=== PATIENT | female | born 1960 | race Caucasian/White ===

== ENCOUNTER 2018-09-27 12:52 | Observation (INO) | payer OTHER ==
--- NOTE | 2018-09-27 14:08 | Emergency Department Record ---
History of Present Illness - General Chief Complaint: General Stated Complaint: LOW BLOOD COUNT Time Seen by Provider: 09/27/18 12:55 Source: Patient, RN notes reviewed Mode of Arrival: Ambulatory - History of Present Illness Initial comments: Patient has been SOB for the last 6 months and progressively worse and much worse in the last few days and she saw Judith Negron and blood reveals hg 6.5 and no bloody or black stool. No NSAID and only couple aspirins couple of days ago and occassionally upset stomach. Mother had Mylodsyplastic disease and at 76 years old. Patient had a colonoscopy many years ago. Patient's says she drinks 5 beers per week. Onset/Timin -: Month(s) - T[place]ha Coma Scale Eye Response: (4) Open spontaneously Motor Response: (6) Obeys commands Verbal Response: (5) Oriented [place] Total: 15 - Related Data Home Medications Medication Instructions Recorded Confirmed Last Taken No Home Med [NO HOME MEDS] 09/27/18 09/27/18 Unknown Allergies Allergy/AdvReac Type Severity Reaction Status Date / Time Carbonic Anhydrase Inhibitors Allergy Unknown PT UNSURE Verified 09/27/18 13:01 OF REACTION levofloxacin Allergy Unknown PT UNSURE Verified 09/27/18 13:01 OF REACTION Quinolones Allergy Unknown PT UNSURE Verified 09/27/18 13:01 OF REACTION Sulfa (Sulfonamide Allergy Unknown PT UNSURE Verified 09/27/18 13:01 Antibiotics) OF REACTION sulfacetamide Allergy Unknown PT UNSURE Verified 09/27/18 13:01 OF REACTION sulfamethoxazole Allergy Unknown PT UNSURE Verified 09/27/18 13:01 OF REACTION Sulfonylureas Allergy Unknown PT UNSURE Verified 09/27/18 13:01 OF REACTION Thiazides Allergy Unknown PT UNSURE Verified 09/27/18 13:01 OF REACTION Travel Screening - Travel/Exposure Within Last 30 Days Have you traveled within the last 30 days?: No - Travel/Exposure Within Last Year Have you traveled outside the [place] in the last year?: No - Additonal Travel Details Have you been exposed to anyone with a communicable illness?: No - Travel Symptoms Symptom Screening: None Review of Systems Reviewed: No additional complaints except as noted below Constitutional: Reports: As per HPI. Denies: Chills, Fever, Malaise, Night sweats, Weakness, Weight change Eyes: Reports: As per HPI. Denies: Eye discharge, Eye pain, Photophobia, Vision change ENT: Reports: As per HPI. Denies: Congestion, Dental pain, Ear pain, Epistaxis , Hearing loss, Throat pain Respiratory: Reports: As per HPI, Dyspnea. Denies: Cough, Hemoptysis, Stridor, Wheezes Cardiovascular: Reports: As per HPI, Dyspnea on exertion. Denies: Arrhythmia, Chest pain, Edema, Murmurs, Orthopnea, Palpitations, Paroxysmal nocturnal dyspnea, Rheumatic Fever, Syncope Endocrine: Reports: As per HPI. Denies: Fatigue, Heat or cold intolerance, Polydipsia, Polyuria Gastrointestinal: Reports: As per HPI. Denies: Abdominal pain, Constipation, Diarrhea, Hematemesis, Hematochezia, Melena, Nausea, Vomiting Genitourinary: Reports: As per HPI. Denies: Abnormal menses, Discharge, Dyspareunia, Dysuria, Frequency, Hematuria, Incontinence, Retention, Urgency Musculoskeletal: Reports: As per HPI. Denies: Arthralgia, Back pain, Gout, Joint swelling, Myalgia, Neck pain Skin: Reports: As per HPI. Denies: Bruising, Change in color, Change in hair/ nails, Lesions, Pruritus, Rash Neurological: Reports: As per HPI. Denies: Abnormal gait, Confusion, Headache, Numbness, Paresthesias, Seizure, Tingling, Tremors, Vertigo, Weakness Psychiatric: Reports: As per HPI. Denies: Anxiety, Auditory hallucinations, Depression, Homicidal thoughts, Suicidal thoughts, Visual hallucinations Hematological/Lymphatic: Reports: As per HPI. Denies: Anemia, Blood Clots, Easy bleeding, Easy bruising, Swollen glands Past Medical History - SOCIAL HISTORY Smoking Status: Never smoker Alcohol Use: Occasional Drug Use: None - RESPIRATORY Hx Respiratory Disorders: No - CARDIOVASCULAR Hx Cardio Disorders: No - NEURO Hx Neuro Disorders: No - GI Hx GI Disorders: No - Hx Genitourinary Disorders: No - ENDOCRINE Hx Endocrine Disorders: No - MUSCULOSKELETAL Hx Musculoskeletal Disorders: No - PSYCH Hx Psych Problems: No - HEMATOLOGY/ONCOLOGY Hx Hematology/Oncology Disorders: No Family Medical History Any Significant Family History?: Yes Hx Diabetes: Father, Brother/Sister Hx Heart Disease: Father, Mother Physical Exam - General General Appearance: Alert, Oriented x3, Cooperative, No acute distress Limitations: Other (pale) - Head Head exam: Normal inspection - Eye Eye exam: Normal appearance, PERRL Pupils: Normal accommodation - ENT ENT exam: Normal exam, Mucous membranes moist, Normal external ear exam, Normal orophraynx, TM's normal bilaterally Ear exam: Normal external inspection. negative: External canal tenderness Nasal Exam: Normal inspection. negative: Discharge, Sinus tenderness Mouth exam: Normal external inspection, Tongue normal Teeth exam: Normal inspection. negative: Dental caries Throat exam: Normal inspection. negative: Tonsillar erythema, Tonsillar exudate - Neck Neck exam: Normal inspection, Full ROM. negative: Tenderness - Respiratory Respiratory exam: Normal lung sounds bilaterally. negative: Respiratory distress - Cardiovascular Cardiovascular Exam: Regular rate, Normal rhythm, Normal heart sounds - GI/Abdominal GI/Abdominal exam: Soft, Normal bowel sounds. negative: Tenderness - Rectal Rectal exam: Heme (-) stool (brown stool) - exam: Deferred - Extremities Extremities exam: Normal inspection, Full ROM, Normal capillary refill. negative: Tenderness - Back Back exam: Reports: Normal inspection, Full ROM. Denies: Muscle spasm, Rash noted, Tenderness - Neurological Neurological exam: Alert, Normal gait, Oriented X3, Reflexes normal - Psychiatric Psychiatric exam: Normal affect, Normal mood - Skin Skin exam: Dry, Intact, Normal color, Warm Course Vital Signs 09/27/18 13:02 Temperature 98.1 F Pulse Rate 92 H Respiratory 20 Rate Blood Pressure 150/75 - Reevaluation(s) Reevaluation #1: discussed treatment options with patient and she wants to stay here and have blood transfusions and follow up with GI on tuesday to see Dr. Power. Discussed case with Larissa Pruitt NP and she excepted the admission. 09/27/18 15:58 Medical Decision Making - Data Complexity MDM Data: Labs Ordered and/or Reviewed (iron low, hg 6.5), X-Ray Ordered and/or Reviewed (4 non obstructing kidney stones in the right kidney collection , stones in the left kidney nonobstructing) Disposition Clinical Impression: Anemia Qualifiers: Anemia type: iron deficiency Iron deficiency anemia type: unspecified iron deficiency Qualified Code(s): D50.9 - Iron deficiency anemia, unspecified Decision to Admit: Admit from ER Condition: (1) Good Instructions: Anemia (ED) Forms: Patient Portal Access Time of Disposition: 16:01 Quality - Quality Measures Quality Measures: N/A - Blood Pressure Screening Does Patient Have Any of the Following: No Blood Pressure Classification: Hypertensive Reading Systolic Measurement: 150 Diastolic Measurement: 75 Screening for High Blood Pressure: < Pre-Hypertensive BP, F/U Documented > [ [id number]] Pre-Hypertensive Follow-up Interventions: Referral to alternative/primary care provider.
[2018-09-27 14:57] LABS: ABO GROUP A; IMMED. SPIN CROSSMATCH COMPATIBLE; RH TYPE NEGATIVE
[2018-09-27 14:58] LABS: ANTIBODY SCREEN NEGATIVE (NEGATIVE)
[2018-09-27] MEDS ORDERED: ACETAMINOPHEN 325 MG TAB PO PRN (16:06)
[2018-09-27] MEDS ORDERED: 0.9 % SODIUM CHLORIDE 1000ML 1,000 ML IV PRN ×2 (16:06→17:19)
[2018-09-27 17:40] LABS: IMMED. SPIN CROSSMATCH COMPATIBLE
[2018-09-27] MEDS ORDERED: 0.9 % SODIUM CHLORIDE 500ML 500 ML IV ONE (17:47)
[2018-09-28 06:41] LABS: HEMATOCRIT 28.2 % (35.0-47.0); MEAN CORPUSCULAR HGB CONC 28.4 g/dl (32-36); MEAN PLATELET VOLUME 9.5 fl (7.4-10.4); PLATELET COUNT 436 K/uL (130-400); RED BLOOD COUNT 4.03 M/uL (3.80-5.40); RED CELL DISTRIBUTION WIDTH 22.6 % (11.5-14.5); WHITE BLOOD COUNT W/O DIFF 8.1 K/uL (4.2-12.2)
[2018-09-28 07:28] LABS: MEAN CORPUSCULAR HEMOGLOBIN 19.8 pg (27-33)
[2018-09-28 07:54] LABS: ANISOCYTOSIS 1+; HYPOCHROMIA 2+
--- NOTE | 2018-09-28 10:45 | CT SCAN REPORT ---
EXAM: CT OF THE ABDOMEN AND PELVIS WITHOUT CONTRAST HISTORY: SHORTNESS OF BREATH. LOW HEMOGLOBIN. TECHNIQUE: Routine helical CT examination of the abdomen and pelvis was performed without oral or intravenous contrast administration. Lack of oral and IV contrast utilization limits evaluation of the bowel and solid viscera respectively. Comparison: CT abdomen and pelvis without contrast dated 09/04/12. FINDINGS: The lung bases are grossly clear. There is a moderate to large sliding type hiatal hernia redemonstrated. This appears slightly larger in the interval and there is associated minimal compressive atelectasis of the adjacent medial lung bases. A nonenlarged lymph node is likely present in the right posterior aspect of the hernia sac. No pleural or pericardial effusion. The heart is not enlarged. The liver, spleen, pancreas, and adrenal glands are normal in appearance. The gallbladder is unremarkable and no biliary ductal dilatation is seen. A small peripherally calcified splenic artery aneurysm is noted in the left upper quadrant as seen on series 3 image 35 measuring 5.4 mm in diameter. Areas of scarring are again noted within the right kidney. There are several calculi within the dependent portion of the prominent right renal collecting system pelvis. The largest of these is disk shaped measuring 12 mm in maximum diameter. The next largest is also disk shaped measuring 7.5 mm in maximum diameter. The other two measure 5 mm in length bilaterally. Only one calculus was present in the right renal collecting system previously. The previously demonstrated calculi in the lower right kidney are no longer present in this location. There is a possible tiny 1 mm calculus in the upper pole of the right kidney. There is a calculus within a lower pole infundibulum in the left renal collecting system measuring 4.3 mm in diameter. No ureteral calculus is seen. No intrinsic urinary bladder abnormality. The uterus is surgically absent. Scarring is noted at the level of the vaginal cuff. No new pelvic mass, lymphadenopathy, or free pelvic fluid. There is diverticulosis scattered throughout the colon without evidence of acute diverticulitis. The appendix is visualized and normal in appearance. A small fat filled umbilical hernia is redemonstrated. There is expansion of the sacral spinal canal as well as the first and second left sacral neural foramina and to a lesser degree the right second sacral neural foramen. These findings are unchanged and are consistent with perineural cyst/intersacral meningocele. No new lytic or blastic bone lesion. IMPRESSION: 1. THERE ARE FOUR NONOBSTRUCTING CALCULI WITHIN THE DEPENDENT DILATED RIGHT RENAL COLLECTING SYSTEM PELVIS WITH THE LARGEST MEASURING 12 MM IN DIAMETER. THIS APPEARS TO BE IN THE SETTING OF CHRONIC UPJ OBSTRUCTION. 2. TINY 1 MM NONOBSTRUCTING CALCULUS IN THE UPPER POLE OF THE LEFT KIDNEY. 3. 4.3 MM CALCULUS WITHIN A LOWER POLE INFUNDIBULUM OF THE LEFT RENAL COLLECTING SYSTEM. THIS APPEARS TO BE NONOBSTRUCTING. NO URETERAL CALCULUS. 4. COLONIC DIVERTICULOSIS WITHOUT EVIDENCE OF ACUTE DIVERTICULITIS. 5. MODERATE TO LARGE HIATAL HERNIA WITH ASSOCIATED MILD COMPRESSIVE ATELECTASIS OF THE MEDIAL LUNG BASES. THIS HAS MILDLY ENLARGED SINCE 2013. 6. SMALL PERIPHERALLY CALCIFIED SPLENIC ARTERY ANEURYSM, STABLE. 7. STATUS POST HYSTERECTOMY. 8. FLUID DENSITY PROMINENCE EXPANDING THE SACRAL SPINAL CANAL AND SEVERAL SACRAL NEURAL FORAMINA, STABLE CONSISTENT WITH PERINEURAL CYST/INTERSACRAL MENINGOCELE. JOB NUMBER: [id number] MTDD
--- NOTE | 2018-09-28 11:56 | History & Physical ---
History of Present Illness - Date of Service Date of Service for History & Physical: 09/29/18 - History of Present Illness Admitting Diagnosis: anemia History of Present Illness: Anne Benson is a 58 y.o. F who presented to ED at the instruction of her new PCP, Judith Negron NP. Was seen in the office on 09/26/18 with c/o SOB x 6 months. Labs were drawn showing a hgb of 6.5, MCV 66.4. Had reported hx of black , tarry stool however pt associated it with eating prunes daily. Has not noted any bleeding from anywhere. Stated that her mother from complications r/t myeloproliferative d/o which the pt's aunt (mom's sister) also had. Reported that she has been pretty healthy, used to run several miles a day when in the . Has never had any cardiac work up done. Was given the option in the ED to transfer to higher level of care that had GI specialist on staff or to stay the night at [facility], get blood and then return next week for outpatient endoscopy. Pt chose to stay at [facility] for care. ED Course Vitals: T 98.1, Hr 92, BP 150/75, RR 20, SpO2 98% on RA Rectal Exam WNL Stool Neg. for Occult blood CT Abd/Pelvis: no obvious cause of bleeding noted 09/28/18 1100 Sitting up in bed, alert and appropriate. Spouse at bedside. Reports that she received blood the previous night and is feeling slightly less fatigued. Denies SOB when sitting but does experience it with exertion. Denies CP, palpitations or LE edema. Bowels working appropriately. No nausea. Travel Screening - Travel/Exposure Within Last 30 Days Have you traveled within the last 30 days?: No - Travel/Exposure Within Last Year Have you traveled outside the [place] in the last year?: No - Additonal Travel Details Have you been exposed to anyone with a communicable illness?: No - Travel Symptoms Symptom Screening: None Review of Systems Reviewed: No additional complaints except as noted below Constitutional: Reports: As per HPI. Denies: Chills, Fever, Malaise, Night sweats, Weakness, Weight change Eyes: Reports: As per HPI. Denies: Eye discharge, Eye pain, Photophobia, Vision change ENT: Reports: As per HPI. Denies: Congestion, Dental pain, Ear pain, Epistaxis , Hearing loss, Throat pain Respiratory: Reports: As per HPI, Dyspnea. Denies: Cough, Hemoptysis, Stridor, Wheezes Cardiovascular: Reports: As per HPI, Dyspnea on exertion. Denies: Arrhythmia, Chest pain, Edema, Murmurs, Orthopnea, Palpitations, Paroxysmal nocturnal dyspnea, Rheumatic Fever, Syncope Endocrine: Reports: As per HPI, Fatigue. Denies: Heat or cold intolerance, Polydipsia, Polyuria Gastrointestinal: Reports: As per HPI. Denies: Abdominal pain, Constipation, Diarrhea, Hematemesis, Hematochezia, Melena, Nausea, Vomiting Genitourinary: Reports: As per HPI. Denies: Abnormal menses, Discharge, Dyspareunia, Dysuria, Frequency, Hematuria, Incontinence, Retention, Urgency Musculoskeletal: Reports: As per HPI. Denies: Arthralgia, Back pain, Gout, Joint swelling, Myalgia, Neck pain Skin: Reports: As per HPI. Denies: Bruising, Change in color, Change in hair/ nails, Lesions, Pruritus, Rash Neurological: Reports: As per HPI. Denies: Abnormal gait, Confusion, Headache, Numbness, Paresthesias, Seizure, Tingling, Tremors, Vertigo, Weakness Psychiatric: Reports: As per HPI. Denies: Anxiety, Auditory hallucinations, Depression, Homicidal thoughts, Suicidal thoughts, Visual hallucinations Hematological/Lymphatic: Reports: As per HPI. Denies: Anemia, Blood Clots, Easy bleeding, Easy bruising, Swollen glands Past Medical History - SOCIAL HISTORY Smoking Status: Never smoker Alcohol Use: Occasional Drug Use: None - RESPIRATORY Hx Respiratory Disorders: No - CARDIOVASCULAR Hx Cardio Disorders: Yes Comment:: murmur - NEURO Hx Neuro Disorders: No - GI Hx GI Disorders: No - Hx Genitourinary Disorders: No - ENDOCRINE Hx Endocrine Disorders: No - MUSCULOSKELETAL Hx Musculoskeletal Disorders: No - PSYCH Hx Psych Problems: No - HEMATOLOGY/ONCOLOGY Hx Hematology/Oncology Disorders: Yes Hx Anemia: Yes Family Medical History Any Significant Family History?: Yes Hx Diabetes: Father, Brother/Sister Hx Heart Disease: Father, Mother H&P Meds/Allergies - Allergies Allergies: Allergies Allergy/AdvReac Type Severity Reaction Status Date / Time Carbonic Anhydrase Inhibitors Allergy Unknown PT UNSURE Verified 09/27/18 13:01 OF REACTION levofloxacin Allergy Unknown PT UNSURE Verified 09/27/18 13:01 OF REACTION Quinolones Allergy Unknown PT UNSURE Verified 09/27/18 13:01 OF REACTION Sulfa (Sulfonamide Allergy Unknown PT UNSURE Verified 09/27/18 13:01 Antibiotics) OF REACTION sulfacetamide Allergy Unknown PT UNSURE Verified 09/27/18 13:01 OF REACTION sulfamethoxazole Allergy Unknown PT UNSURE Verified 09/27/18 13:01 OF REACTION Sulfonylureas Allergy Unknown PT UNSURE Verified 09/27/18 13:01 OF REACTION Thiazides Allergy Unknown PT UNSURE Verified 09/27/18 13:01 OF REACTION - Home Medications Previous Rx's Medication Instructions Recorded Acetaminophen [Tylenol 325Mg] 650 mg PO Q6H PRN tablet 09/28/18 - Active Medications Active Medications: Current Medications Acetaminophen (Tylenol 325mg) 650 mg PO Q6H PRN PRN Reason: PAIN - MILD(1-4)/FEVER Sodium Chloride () 500 mls @ 15 mls/hr IV .Q24H ONE Stop: 09/28/18 17:46 Physical Exam - Vital Signs Vital Signs: Vital Signs - Last 24 Hrs Temp Pulse Pulse Resp BP BP BP 09/28/18 10:00 97.9 F 74 18 127/64 09/28/18 06:00 98.1 F 67 18 150/84 09/28/18 00:06 98.1 F 74 17 154/87 09/27/18 20:00 97.9 F 80 18 123/69 09/27/18 18:18 18 09/27/18 16:45 98.1 F 92 H 18 150/75 09/27/18 16:11 75 18 128/76 09/27/18 13:02 98.1 F 92 H 20 150/75 Pulse Ox 09/28/18 10:00 97 09/28/18 06:00 96 09/28/18 00:06 99 09/27/18 20:00 99 09/27/18 18:18 09/27/18 16:45 98 09/27/18 16:11 98 09/27/18 13:02 - General General Appearance: Alert, Oriented x3, Cooperative, No acute distress Limitations: Other (pale) - Head Head exam: Normal inspection - Eye Eye exam: Normal appearance, PERRL Pupils: Normal accommodation - ENT ENT exam: Normal exam, Mucous membranes moist Ear exam: negative: External canal tenderness Nasal Exam: negative: Discharge, Sinus tenderness Teeth exam: Normal inspection. negative: Dental caries Throat exam: Normal inspection. negative: Tonsillar erythema, Tonsillar exudate - Neck Neck exam: Normal inspection, Full ROM. negative: Tenderness - Respiratory Respiratory exam: Normal lung sounds bilaterally. negative: Respiratory distress - Cardiovascular Cardiovascular Exam: Regular rate, Normal rhythm, Systolic murmur - GI/Abdominal GI/Abdominal exam: Soft, Normal bowel sounds. negative: Tenderness - Rectal Rectal exam: Heme (-) stool (brown stool) - exam: Deferred - Extremities Extremities exam: Normal inspection, Full ROM, Normal capillary refill. negative: Tenderness - Back Back exam: Reports: Normal inspection, Full ROM. Denies: Muscle spasm, Rash noted, Tenderness - Neurological Neurological exam: Alert, Normal gait, Oriented X3, Reflexes normal - Psychiatric Psychiatric exam: Normal affect, Normal mood - Skin Skin exam: Dry, Intact, Normal color, Warm Results - Labs Result Diagrams: 09/28/18 06:21 Labs Last 24 Hours: Laboratory Results - last 24 hr 09/27/18 09/27/18 09/27/18 13:07 13:09 13:09 WBC RBC Hgb Hct MCV MCH MCHC RDW Plt Count MPV Neutrophils % Band Neutrophils % Eosinophils % Basophils % Lymphocytes Monocytes Basophils Hypochromasia Anisocytosis Eosinophil Count Stool Occult Blood ABO Group A Rh Factor Negative Antibody Screen Negative Crossmatch Yes Yes 09/28/18 09/28/18 06:21 09:10 WBC 8.1 RBC 4.03 Hgb 8.0 L Hct 28.2 L MCV 70.0 L MCH 19.8 L MCHC 28.4 L RDW 22.6 H Plt Count 436 H MPV 9.5 Neutrophils % 62.0 Band Neutrophils % 0.0 Eosinophils % Not Reportable Basophils % Not Reportable Lymphocytes 27.0 Monocytes 10.0 H Basophils 0.0 Hypochromasia 2+ Anisocytosis 1+ Eosinophil Count 1.0 Stool Occult Blood Negative ABO Group Rh Factor Antibody Screen Crossmatch - Imaging and Cardiology CT scan - abdomen Status: Report reviewed VTE H&P Assessment - Risk for VTE Risk for VTE: Yes Risk Level: Low Risk Assessment Date: 09/28/18 Risk Assessment Time: 11:00 VTE Orders Placed or Will Be Placed: Yes Plan - Detailed Diagnosis and Plan (1) Shortness of breath on exertion Status: Acute Base Code: R06.02 - SHORTNESS OF BREATH Comment: 09/28/18 -Echocardiogram: Grade II diastolic dysfunction, EF 55-60%, mild aortic regurgitation -Recommend f/u with PCP for possible cardiology referral -Iron deficiency anemia; Hgb 6.5, MCV 66.4 (2) Anemia Status: Acute Qualifiers: Anemia type: iron deficiency Iron deficiency anemia type: unspecified iron deficiency Qualified Code(s): D50.9 - Iron deficiency anemia, unspecified Base Code: D64.9 - ANEMIA, UNSPECIFIED Comment: 09/28/18 -Stool negative for occult blood x 2 -Likely iron deficiency anemia -Hgb 6.5, MCV 66.4 -Iron Studies: Iron 10, TIBC 66, % sat 2, Ferritin 4 -2 units PRBCs and Venofer 500mg IV administered -Repeat Venofer Infusion in 2 weeks -EGD and colonoscopy on 10/03/[address] Power (3) Full code status Status: Acute Base Code: Z78.9 - OTHER SPECIFIED HEALTH STATUS Comment: 09/28 -Full code this admission (4) DVT prophylaxis Status: Acute Base Code: [id number] - Comment: 09/28/18 -Low risk -Nursing to encourage ambulation
--- NOTE | 2018-09-28 11:57 | Discharge Summary ---
Providers Discharge Summary Date: 09/28/18 Date of admission: 09/27/18 16:49 Attending physician: PAVITHRA COLE Primary care physician: Judith Negron N.P. Physical Exam - Vital Signs Vital Signs: Vital Signs - Last 24 Hrs Temp Pulse Pulse Resp BP BP BP 09/28/18 10:00 97.9 F 74 18 127/64 09/28/18 06:00 98.1 F 67 18 150/84 09/28/18 00:06 98.1 F 74 17 154/87 09/27/18 20:00 97.9 F 80 18 123/69 09/27/18 18:18 18 09/27/18 16:45 98.1 F 92 H 18 150/75 09/27/18 16:11 75 18 128/76 09/27/18 13:02 98.1 F 92 H 20 150/75 Pulse Ox 09/28/18 10:00 97 09/28/18 06:00 96 09/28/18 00:06 99 09/27/18 20:00 99 09/27/18 18:18 09/27/18 16:45 98 09/27/18 16:11 98 09/27/18 13:02 - General General Appearance: Alert, Oriented x3, Cooperative, No acute distress - Head Head exam: Normal inspection - Eye Eye exam: Normal appearance, PERRL Pupils: Normal accommodation - ENT ENT exam: Normal exam, Mucous membranes moist, Normal external ear exam, Normal orophraynx, TM's normal bilaterally Ear exam: Normal external inspection. negative: External canal tenderness Nasal Exam: Normal inspection. negative: Discharge, Sinus tenderness Mouth exam: Normal external inspection, Tongue normal Teeth exam: Normal inspection. negative: Dental caries Throat exam: Normal inspection. negative: Tonsillar erythema, Tonsillar exudate - Neck Neck exam: Normal inspection, Full ROM. negative: Tenderness - Respiratory Respiratory exam: Normal lung sounds bilaterally. negative: Respiratory distress - Cardiovascular Cardiovascular Exam: Regular rate, Normal rhythm, Systolic murmur - GI/Abdominal GI/Abdominal exam: Soft, Normal bowel sounds. negative: Tenderness - Rectal Rectal exam: Heme (-) stool (brown stool) - exam: Deferred - Extremities Extremities exam: Normal inspection, Full ROM, Normal capillary refill. negative: Pedal edema, Tenderness - Back Back exam: Reports: Normal inspection, Full ROM. Denies: Muscle spasm, Rash noted, Tenderness - Neurological Neurological exam: Alert, Normal gait, Oriented X3, Reflexes normal - Psychiatric Psychiatric exam: Normal affect, Normal mood - Skin Skin exam: Dry, Intact, Normal color, Warm Hospitalization - Hospitalization Admission Diagnosis: anemia - Problem List/Discharge Diagnosis (1) Shortness of breath on exertion Status: Acute Base Code: R06.02 - SHORTNESS OF BREATH Comment: 09/28/18 -Echocardiogram: Grade II diastolic dysfunction, EF 55-60%, mild aortic regurgitation -Recommend f/u with PCP for possible cardiology referral -Iron deficiency anemia; Hgb 6.5, MCV 66.4 (2) Anemia Status: Acute Discharge Diagnosis: Anemia type: iron deficiency Iron deficiency anemia type: unspecified iron deficiency Qualified Code(s): D50.9 - Iron deficiency anemia, unspecified Base Code: D64.9 - ANEMIA, UNSPECIFIED Comment: 09/28/18 -EGD and colonoscopy on 10/03/[address] Power -Labs ordered and to be done prior to f/u appointment with PCP (3) DVT prophylaxis Status: Acute Base Code: [id number] - Comment: 09/28/18 -Low risk -Nursing to encourage ambulation (4) Full code status Status: Acute Base Code: Z78.9 - OTHER SPECIFIED HEALTH STATUS Comment: 09/28 -Full code this admission - Hospitalization Course Disposition: Home, Self-Care Hospital Course: Anne Benson is a 58 y.o. F who presented to ED at the instruction of her new PCP, Judith Negron NP. Was seen in the office on 09/26/18 with c/o SOB x 6 months. Labs were drawn showing a hgb of 6.5, MCV 66.4. Had reported hx of black , tarry stool however pt associated it with eating prunes daily. Has not noted any bleeding from anywhere. Stated that her mother from complications r/t myeloproliferative d/o which the pt's aunt (mom's sister) also had. Reported that she has been pretty healthy, used to run several miles a day when in the . Has never had any cardiac work up done. Was given the option in the ED to transfer to higher level of care that had GI specialist on staff or to stay the night at [facility], get blood and then return next week for outpatient endoscopy. Pt chose to stay at [facility] for care. ED Course Vitals: T 98.1, Hr 92, BP 150/75, RR 20, SpO2 98% on RA Rectal Exam WNL Stool Neg. for Occult blood CT Abd/Pelvis: no obvious cause of bleeding noted 09/28/18 1100 Sitting up in bed, alert and appropriate. Spouse at bedside. Reports that she received blood the previous night and is feeling slightly less fatigued. Denies SOB when sitting but does experience it with exertion. Denies CP, palpitations or LE edema. Bowels working appropriately. No nausea. Procedures: Imaging and X-Rays 09/27/18 14:11 ABDOMEN/PELVIS WO CONTRAST [CT] Stat Cardiology Procedures 09/27/18 19:51 Echocardiogram 2D - Complete ONCE Abnormal Labs: Abnormal Lab Results 09/28/18 Range/Units 06:21 Hgb 8.0 L (11.6-16.0) gm/dl Hct 28.2 L (35.0-47.0) % MCV 70.0 L (81-97) fl MCH 19.8 L (27-33) pg MCHC 28.4 L (32-36) g/dl RDW 22.6 H (11.5-14.5) % Plt Count 436 H (130-400) K/uL Monocytes 10.0 H (0-9) % Condition at Discharge: (1) Good Discharge Medications - Discharge Medications Home Medications: Ambulatory Orders Acetaminophen [Tylenol 325Mg] 650 mg PO Q6H PRN tablet 09/28/18 [Last Taken Unknown] Discharge Plan - Discharge Instructions Activity at Discharge: Resume Usual Activities As Tolerated Diet at Discharge: Advance to Usual Diet Instructions: Anemia (ED) Additional Instructions: 2 Activity: Resume Usual Activities As Tolerated 2 Diet: Advance to Usual Diet 2 Consults: Dr Power 2 Follow Up: [see below] 2 Have outpatient labs drawn before procedure 2 Additional: EGD and colonoscopy scheduled at [facility] with Dr. Power October 02. Arrival time 7:30am. Please bring paperwork with you. Appointment with Judith Negron at [facility], 10/03 at 11:20 Quality Measures - Quality Measures Quality Measures: Documentation of Current Medications in Medical Record, Screening for High Blood Pressure and F/U Documented - Current Medications Quality Measure: Measure #130: Documentation of Current Medications Documentation of Current Medications: <Current Medications Documented/Reviewed> [G8427] - Blood Pressure Screening Quality Measure: Screening for High Blood Pressure and Follow-Up Documented Does Patient Have Any of the Following: No Blood Pressure Classification: Hypertensive Reading Systolic Measurement: 150 Diastolic Measurement: 75 Screening for High Blood Pressure: < Pre-Hypertensive BP, F/U Documented > [ G8950] Pre-Hypertensive Follow-up Interventions: Referral to alternative/primary care provider. - Elder Abuse Suspicion Index EASI Reference Information: Ramos TREVIÑO, Carri C, oRsa Gonzalez, David Bishop.Development and validation of a tool to assist physicians identification of elder abuse: The Elder Abuse Suspicion Index (EASI ). Journal of Elder Abuse and Neglect, 2008; 20 (3): 276-300.
[2018-09-28] MEDS ORDERED: IRON SUCROSE COMPLEX 500 MG in 0.9 % SODIUM CHLORIDE 250ML 250 ML IVPB ONE (13:45)
== END 2018-09-28 17:20 | disposition home or self-care (01) ==
LOC: ER 12:52 → MEDSURG 16:49
PROVIDERS: ADMIT Internal Medicine; ATTEND Internal Medicine
DX: D50.9 Iron deficiency anemia, unspecified (principal); R06.02 Shortness of breath
CPT/HCPCS: 99285 ×2; 36430; 82272; 85027; 86900; 86901; 86850; 74176; 93306; 90686; G0378 ×2; P9016; J1756; 99220; J7050

== ENCOUNTER 2018-10-01 14:52 | Observation (INO) | payer OTHER ==
--- NOTE | 2018-10-01 16:05 | Emergency Department Record ---
History of Present Illness - General Chief complaint: Extremity Problem Stated complaint: LT ARM SWELLING/PAIN Time Seen by Provider: 10/01/18 15:41 Source: Patient Mode of Arrival: Ambulatory Limitations: No limitations - History of Present Illness Initial comments: The patient is here due to L arm pain for 3 days. The patient was recently here as an inpatient from the to the 28 of September due to Critical anemia and did receive blood and an IV Iron infusion. The patient states at the end of the iron infusion the IV went subcut. and she had mild pain and swelling at the site over the L antecubital fossa. Now over the last 3 days the area has become progressively more swollen, painful, and erythematous. She denies any CP, SOB, or fevers. MD Complaint: Extremity pain Onset/Timin -: Days(s) Location: Left, Arm Severity scale (1-10): 8 Quality: Burning Consistency: Constant Improves with: Nothing Worsens with: Nothing - Related Data Allergies Allergy/AdvReac Type Severity Reaction Status Date / Time Carbonic Anhydrase Inhibitors Allergy Unknown PT UNSURE Verified 10/01/18 15:35 OF REACTION levofloxacin Allergy Unknown PT UNSURE Verified 10/01/18 15:35 OF REACTION Quinolones Allergy Unknown PT UNSURE Verified 10/01/18 15:35 OF REACTION Sulfa (Sulfonamide Allergy Unknown PT UNSURE Verified 10/01/18 15:35 Antibiotics) OF REACTION sulfacetamide Allergy Unknown PT UNSURE Verified 10/01/18 15:35 OF REACTION sulfamethoxazole Allergy Unknown PT UNSURE Verified 10/01/18 15:35 OF REACTION Sulfonylureas Allergy Unknown PT UNSURE Verified 10/01/18 15:35 OF REACTION Thiazides Allergy Unknown PT UNSURE Verified 10/01/18 15:35 OF REACTION Travel Screening - Travel/Exposure Within Last 30 Days Have you traveled within the last 30 days?: No - Travel/Exposure Within Last Year Have you traveled outside the [place] in the last year?: No - Additonal Travel Details Have you been exposed to anyone with a communicable illness?: No - Travel Symptoms Symptom Screening: None Review of Systems Constitutional: Denies: Chills, Fever Eyes: Denies: Eye discharge ENT: Denies: Congestion Respiratory: Denies: Cough, Dyspnea Cardiovascular: Denies: Arrhythmia Endocrine: Denies: Fatigue Gastrointestinal: Denies: Nausea Genitourinary: Denies: Dysuria Musculoskeletal: Denies: Arthralgia Skin: Denies: Bruising Past Medical History - SOCIAL HISTORY Smoking Status: Never smoker Alcohol Use: Occasional Drug Use: None - RESPIRATORY Hx Respiratory Disorders: No - CARDIOVASCULAR Hx Cardio Disorders: Yes Comment:: murmur - NEURO Hx Neuro Disorders: No Comment:: lupus - GI Hx GI Disorders: No - Hx Genitourinary Disorders: Yes Hx Kidney Stones: Yes - ENDOCRINE Hx Endocrine Disorders: No - MUSCULOSKELETAL Hx Musculoskeletal Disorders: No - PSYCH Hx Psych Problems: No - HEMATOLOGY/ONCOLOGY Hx Hematology/Oncology Disorders: Yes Hx Anemia: Yes Family Medical History Any Significant Family History?: No Hx Diabetes: Father, Brother/Sister Hx Heart Disease: Father, Mother Physical Exam - General General Appearance: Alert, Cooperative, No acute distress - Head Head exam: Atraumatic, Normocephalic - Eye Eye exam: Normal appearance - Neck Neck exam: Normal inspection, Full ROM. negative: Tenderness - Respiratory Respiratory exam: Normal lung sounds bilaterally. negative: Respiratory distress - Cardiovascular Cardiovascular Exam: Regular rate, Normal rhythm, Normal heart sounds - GI/Abdominal GI/Abdominal exam: Soft, Normal bowel sounds. negative: Tenderness - Extremities Extremities exam: negative: Normal inspection (The L antecubital fossa is tender , warm and erythematous but with no fluctuance. The L arm distally is NVI.) - Neurological Neurological exam: Alert, Normal gait. negative: Abnormal gait, Motor sensory deficit - Psychiatric Psychiatric exam: negative: Anxious - Skin Skin exam: negative: Petechiae Course Vital Signs 10/01/18 15:07 Temperature 98.5 F Pulse Rate 104 H Respiratory 18 Rate Blood Pressure 141/94 Pulse Ox 99 - Reevaluation(s) Reevaluation #1: The patient is doing better at this time but still clearly has the L arm pain and erythema. I do believe we need to admit the patient for IV Abx's for cellulitis. I did discuss the case with Marisa ([employer]) who did accept the case for Dr. Oro. She will order an AM US of the area and possibly consult Dr. Upton for any abscess. 10/01/18 16:44 Medical Decision Making - Lab Data Result diagrams: 10/01/18 16:08 10/01/18 16:08 Disposition Disposition: Admit Clinical Impression: Cellulitis Qualifiers: Site of cellulitis: unspecified site Qualified Code(s): L03.90 - Cellulitis, unspecified Disposition: Still a Patient at [facility] Decision to Admit: Admit from ER Decision to Admit Date: 10/01/18 Decision to Admit Time: 16:46 Accepting Physician: Preethi Time Discussed w/Accepting Physician: 16:46 Condition: (2) Stable Forms: Patient Portal Access Time of Disposition: 16:46 Quality - Quality Measures Quality Measures: N/A - Blood Pressure Screening View Details: Yes Does Patient Have Any of the Following: No Blood Pressure Classification: Hypertensive Reading Systolic Measurement: 141 Diastolic Measurement: 94 Screening for High Blood Pressure: < First Hypertensive BP, F/U Documented > [ G8950] First Hypertensive Follow-up Interventions: Referral to alternative/primary care provider.
[2018-10-01] MEDS ORDERED: CLINDAMYCIN 600MG/50ML PREMIX 600 MG/50 ML BAG IVPB ONE (16:09)
[2018-10-01 16:12] LABS: BASO % 0.5 % (0-6); GRAN % 74.8 % (47-80); LYMPH % 11.8 % (16-45); MEAN CELL VOLUME 71.8 fl (81-97); MEAN CORPUSCULAR HEMOGLOBIN 20.8 pg (27-33); MONO % 11.9 % (0-9); PLATELET COUNT 472 K/uL (130-400); RED BLOOD COUNT 4.32 M/uL (3.80-5.40); WHITE BLOOD COUNT W/O DIFF 12.6 K/uL (4.2-12.2)
[2018-10-01 16:18] LABS: RED CELL DISTRIBUTION WIDTH 25.9 % (11.5-14.5)
[2018-10-01 16:22] LABS: BILIRUBIN,TOTAL 0.4 mg/dL (0.2-1.0); CREATININE 1.1 mg/dL (0.5-0.9)
[2018-10-01 16:23] LABS: TOTAL PROTEIN 7.1 g/dL (6.6-8.7)
[2018-10-01 16:27] LABS: ALB/GLOB RATIO 1.4 (1.1-1.8); ALBUMIN 4.1 g/dL (4.0-5.0)
[2018-10-01] MEDS ORDERED: ACETAMINOPHEN 325 MG TAB PO PRN (18:06)
[2018-10-01] MEDS ORDERED: 0.9 % SODIUM CHLORIDE 1000ML 1,000 ML IV PRN (18:06)
[2018-10-01] MEDS: HYDROCODONE/APAP 5/325MG TABLET PO PRN (20:32)
[2018-10-01] MEDS: MORPHINE SULFATE 10 MG/ML VIAL IVP PRN (20:32)
[2018-10-02] MEDS: CLINDAMYCIN 600MG/50ML PREMIX 600 MG/50 ML BAG IVPB SCH ×3 (00:31→16:10)
[2018-10-02] MEDS: HYDROCODONE/APAP 5/325MG TABLET PO PRN ×2 (04:34→13:10)
[2018-10-02] MEDS: MORPHINE SULFATE 10 MG/ML VIAL IVP PRN (04:38)
[2018-10-02 06:56] LABS: BASO % 0.5 % (0-6); EOS % 1.9 % (0-6); GRAN % 67.1 % (47-80); HEMATOCRIT 27.2 % (35.0-47.0); HEMOGLOBIN 7.6 gm/dl (11.6-16.0); LYMPH % 15.9 % (16-45); MEAN CELL VOLUME 74.3 fl (81-97); MEAN PLATELET VOLUME 9.1 fl (7.4-10.4); MONO % 14.6 % (0-9); PLATELET COUNT 368 K/uL (130-400); RED BLOOD COUNT 3.66 M/uL (3.80-5.40); WHITE BLOOD COUNT W/O DIFF 9.7 K/uL (4.2-12.2)
[2018-10-02 07:06] LABS: MEAN CORPUSCULAR HEMOGLOBIN 20.7 pg (27-33); MEAN CORPUSCULAR HGB CONC 27.9 g/dl (32-36)
[2018-10-02 07:07] LABS: RED CELL DISTRIBUTION WIDTH 26.5 % (11.5-14.5)
[2018-10-02 07:09] LABS: BLOOD UREA NITROGEN 10 mg/dL (6-20); CREATININE 0.7 mg/dL (0.5-0.9); EST GLOMERULAR FILTRATION RATE > 60 mL/min; GLUCOSE,RANDOM 109 mg/dL (74-109)
[2018-10-02] MEDS ORDERED: ONDANSETRON HCL IV 4 MG/2 ML VIAL IVP PRN (07:37)
--- NOTE | 2018-10-02 11:50 | History & Physical ---
History of Present Illness - Date of Service Date of Service for History & Physical: 10/02/18 - History of Present Illness Admitting Diagnosis: 1. Acute L Arm Cellulitis. History of Present Illness: Anne Benson is a 58 y.o. F who presented to the [facility] ED d/t left arm pain x 3 days. Pt was recently hospitalized from 09/27/18 to 09/28/18 d/t critically low anemia. Received 2 units of PRBCs and an IV Iron Infusion. Pt stated that the iron infusion went subq. Had mild pain and swelling at the site over the left anticubital fossa however over the last 3 days, it became progressively more swollen, painful and erythematous. Denied SOB or fevers. ED Course Vitals: T 98.5, HR 104, BP 141/94, RR 18, SpO2 99% on RA Labs: Creatinine 1.1, GFR 54, WBC 12.6, Hgb 9, CRP 5.2 10/02/18 1145 Vitals: T 97.0, HR 70, BP 123/75, RR 18, SpO2 97% RA Lying in bed with left arm elevated. Awake and Alert. Spouse at bedside. Reports that the redness is subsiding and that the pain is at a 3/10. Had morphine last evening which made her nauseated leading to vomiting. Discussed plan to have L arm U/S and a total of 24 hours worth of IV antibiotics. Pt and spouse verbalized agreement with plan to go home on PO antibiotics given that the arm U/S does not show a need for surgery consult. Discussed hemoglobin drop and no intervention at this time as pt has Upper and Lower GI scopes scheduled for 10/05/[address] Power. Travel Screening - Travel/Exposure Within Last 30 Days Have you traveled within the last 30 days?: No - Travel/Exposure Within Last Year Have you traveled outside the [place] in the last year?: No - Additonal Travel Details Have you been exposed to anyone with a communicable illness?: No - Travel Symptoms Symptom Screening: None Review of Systems Reviewed: No additional complaints except as noted below Constitutional: Denies: Chills, Fever, Malaise Eyes: Denies: Eye discharge ENT: Denies: Congestion Respiratory: Denies: Cough, Dyspnea Cardiovascular: Denies: Arrhythmia Endocrine: Denies: Fatigue Gastrointestinal: Denies: Nausea Genitourinary: Denies: Dysuria Musculoskeletal: Denies: Arthralgia Skin: Reports: Other (left arm pain, swelling and redness). Denies: Bruising Past Medical History - SOCIAL HISTORY Smoking Status: Never smoker Alcohol Use: Occasional - RESPIRATORY Hx Respiratory Disorders: No - CARDIOVASCULAR Hx Cardio Disorders: Yes Comment:: murmur - NEURO Hx Neuro Disorders: No Comment:: lupus - GI Hx GI Disorders: No - Hx Genitourinary Disorders: Yes Hx Kidney Stones: Yes - ENDOCRINE Hx Endocrine Disorders: No - MUSCULOSKELETAL Hx Musculoskeletal Disorders: No - PSYCH Hx Psych Problems: No - HEMATOLOGY/ONCOLOGY Hx Hematology/Oncology Disorders: Yes Hx Anemia: Yes Family Medical History Any Significant Family History?: No Hx Diabetes: Father, Brother/Sister Hx Heart Disease: Father, Mother H&P Meds/Allergies - Allergies Allergies: Allergies Allergy/AdvReac Type Severity Reaction Status Date / Time Carbonic Anhydrase Inhibitors Allergy Unknown PT UNSURE Verified 10/01/18 15:35 OF REACTION levofloxacin Allergy Unknown PT UNSURE Verified 10/01/18 15:35 OF REACTION Quinolones Allergy Unknown PT UNSURE Verified 10/01/18 15:35 OF REACTION Sulfa (Sulfonamide Allergy Unknown PT UNSURE Verified 10/01/18 15:35 Antibiotics) OF REACTION sulfacetamide Allergy Unknown PT UNSURE Verified 10/01/18 15:35 OF REACTION sulfamethoxazole Allergy Unknown PT UNSURE Verified 10/01/18 15:35 OF REACTION Sulfonylureas Allergy Unknown PT UNSURE Verified 10/01/18 15:35 OF REACTION Thiazides Allergy Unknown PT UNSURE Verified 10/01/18 15:35 OF REACTION - Home Medications Previous Rx's Medication Instructions Recorded Acetaminophen [Tylenol 325Mg] 650 mg PO Q4H PRN tablet 10/02/18 Bifidobacterium Infantis [Align] 4 mg PO DAILY #10 capsule 10/02/18 Clindamycin HCl [Cleocin HCl] 300 mg PO QID #28 capsule 10/02/18 Fluconazole [Diflucan] 150 mg PO ONCE #2 tab 10/02/18 Hydrocodone/APAP 5/325Mg [[place] 1 each PO Q4H PRN #10 tab 10/02/18 5Mg/325Mg] - Active Medications Active Medications: Current Medications Acetaminophen (Tylenol 325mg) 650 mg PO Q4H PRN PRN Reason: PAIN - MILD(1-4)/FEVER Hydrocodone Bitart/Acetaminophen ([place] 5mg/325mg) 1 each PO Q4H PRN PRN Reason: PAIN - MOD TO SEVERE (5-10) Last Admin: 10/02/18 04:34 Dose: 1 each Sodium Chloride () 1,000 mls @ 75 mls/hr IV .[id number] PRN PRN Reason: LARGE VOLUME IV Clindamycin Phosphate (Cleocin 600 [id number]) 600 mg in 50 mls @ 100 mls/ hr IVPB 0100,0900,1700 MARC Last Infusion: 10/02/18 10:30 Dose: Infused Morphine Sulfate (Morphine Sulfate) 2 mg IVP Q4H PRN PRN Reason: PAIN - SEVERE (8-10) Last Admin: 10/02/18 04:38 Dose: 2 mg Ondansetron HCl (Zofran) 4 mg IVP Q6H PRN PRN Reason: NAUSEA Last Admin: 10/02/18 07:46 Dose: 4 mg Physical Exam - Vital Signs Vital Signs: Vital Signs - Last 24 Hrs Temp Pulse Pulse Resp BP BP Pulse Ox 10/02/18 08:45 18 10/02/18 08:25 97.0 F L 70 18 123/75 97 10/02/18 05:00 98.0 F 74 20 120/61 95 10/01/18 21:00 16 10/01/18 20:06 97.8 F 82 20 156/91 99 10/01/18 17:20 98.6 F 104 H 79 18 141/94 133/76 99 10/01/18 15:07 98.5 F 104 H 18 141/94 99 - General General Appearance: Alert, Oriented x3, Cooperative, No acute distress Limitations: No limitations - Head Head exam: Atraumatic, Normocephalic - Eye Eye exam: Normal appearance - Neck Neck exam: Normal inspection, Full ROM. negative: Tenderness - Respiratory Respiratory exam: Normal lung sounds bilaterally. negative: Respiratory distress - Cardiovascular Cardiovascular Exam: Regular rate, Normal rhythm, Normal heart sounds - GI/Abdominal GI/Abdominal exam: Soft, Normal bowel sounds. negative: Tenderness - Extremities Extremities exam: negative: Normal inspection (The L antecubital fossa is tender , warm and erythematous but with no fluctuance. The L arm distally is NVI.) - Neurological Neurological exam: Alert, Normal gait. negative: Abnormal gait, Motor sensory deficit - Psychiatric Psychiatric exam: negative: Anxious - Skin Skin exam: Other (Left anticubital fossa swollen and redness that is receding from drawn margins). negative: Petechiae Results - Labs Result Diagrams: 10/02/18 06:30 10/02/18 06:30 Labs Last 24 Hours: Laboratory Results - last 24 hr 10/01/18 10/01/18 10/01/18 16:08 16:08 16:08 WBC 12.6 H RBC 4.32 Hgb 9.0 L Hct 31.0 L MCV 71.8 L MCH 20.8 L MCHC 29.0 L RDW 25.9 H Plt Count 472 H MPV 9.0 Gran % 74.8 Lymphocytes % 11.8 L Monocytes % 11.9 H Eosinophils % 1.0 Basophils % 0.5 Sodium 138 Potassium 4.1 Chloride 103 Carbon Dioxide 24.0 Anion Gap 11.0 BUN 9 Creatinine 1.1 H Estimated GFR 54 Random Glucose 124 H Calcium 8.8 Total Bilirubin 0.40 AST 40 H ALT 30 Alkaline Phosphatase 123 H C-Reactive Protein 5.20 H Total Protein 7.1 Albumin 4.1 Globulin 3.0 Albumin/Globulin Ratio 1.4 10/02/18 10/02/18 06:30 06:30 WBC 9.7 RBC 3.66 L Hgb 7.6 L Hct 27.2 L MCV 74.3 L MCH 20.7 L MCHC 27.9 L RDW 26.5 H Plt Count 368 MPV 9.1 Gran % 67.1 Lymphocytes % 15.9 L Monocytes % 14.6 H Eosinophils % 1.9 Basophils % 0.5 Sodium 139 Potassium 4.2 Chloride 105 Carbon Dioxide 24.0 Anion Gap 10.0 BUN 10 Creatinine 0.7 Estimated GFR > 60 Random Glucose 109 Calcium 8.5 L Total Bilirubin AST ALT Alkaline Phosphatase C-Reactive Protein Total Protein Albumin Globulin Albumin/Globulin Ratio VTE H&P Assessment - Risk for VTE Risk for VTE: Yes Risk Level: Low Risk Assessment Date: 10/02/18 Risk Assessment Time: 11:45 VTE Orders Placed or Will Be Placed: Yes Plan - Detailed Diagnosis and Plan (1) Cellulitis Status: Acute Qualifiers: Site of cellulitis: unspecified site Qualified Code(s): L03.90 - Cellulitis , unspecified Base Code: L03.90 - CELLULITIS, UNSPECIFIED Comment: 10/02/18 -LUE cellulitis to anticubital fossa s/p IV Iron infusion that went subq on 09/28 -LUE U/S ordered -WBC decreased from 12.6 to 9.7 -CRP 5.2 -Redness and swelling receding within drawn margins on LUE -Continue Clindamycin IV, will consider switch to PO Clindamycin depending on LUE U/S results -Continue with elevation, can alternate between ice and heat for comfort -NO NSAIDS d/t unknown cause of low hemoglobin -Continue [place] 5/325mg and Tylenol for pain control (2) Anemia Status: Acute Qualifiers: Anemia type: iron deficiency Iron deficiency anemia type: unspecified iron deficiency Qualified Code(s): D50.9 - Iron deficiency anemia, unspecified Base Code: D64.9 - ANEMIA, UNSPECIFIED Comment: 10/02/18 -Hgb dropped from 9 to 7.6 overnight -EGD and colonoscopy on 10/05/[address] Power (3) DVT prophylaxis Status: Acute Base Code: [id number] - Comment: 10/02/18 -Moderate risk -Nursing to encourage ambulation (4) Full code status Status: Acute Base Code: Z78.9 - OTHER SPECIFIED HEALTH STATUS Comment: 10/02 -Full code this admission
--- NOTE | 2018-10-02 15:43 | Discharge Summary ---
Providers Discharge Summary Date: 10/02/18 Date of admission: 10/01/18 16:57 Attending physician: PAVITHRA COLE Primary care physician: Judith Negron N.P. Physical Exam - Vital Signs Vital Signs: Vital Signs - Last 24 Hrs Temp Pulse Pulse Resp BP BP Pulse Ox 10/02/18 13:00 97.5 F L 66 16 116/67 98 10/02/18 08:45 18 10/02/18 08:25 97.0 F L 70 18 123/75 97 10/02/18 05:00 98.0 F 74 20 120/61 95 10/01/18 21:00 16 10/01/18 20:06 97.8 F 82 20 156/91 99 10/01/18 17:20 98.6 F 104 H 79 18 141/94 133/76 99 - General General Appearance: Alert, Oriented x3, Cooperative, No acute distress Limitations: No limitations - Head Head exam: Atraumatic, Normocephalic - Eye Eye exam: Normal appearance - Neck Neck exam: Normal inspection, Full ROM. negative: Tenderness - Respiratory Respiratory exam: Normal lung sounds bilaterally. negative: Respiratory distress - Cardiovascular Cardiovascular Exam: Regular rate, Normal rhythm, Normal heart sounds - GI/Abdominal GI/Abdominal exam: Soft, Normal bowel sounds. negative: Tenderness - Extremities Extremities exam: negative: Normal inspection (The L antecubital fossa is tender , warm and erythematous but with no fluctuance. The L arm distally is NVI.) - Neurological Neurological exam: Alert, Normal gait. negative: Abnormal gait, Motor sensory deficit - Psychiatric Psychiatric exam: negative: Anxious - Skin Skin exam: Other (redness and swelling receding within drawn margins). negative : Petechiae Hospitalization - Hospitalization Admission Diagnosis: 1. Acute L Arm Cellulitis. - Problem List/Discharge Diagnosis (1) Cellulitis Status: Acute Discharge Diagnosis: Site of cellulitis: unspecified site Qualified Code(s): L03.90 - Cellulitis , unspecified Base Code: L03.90 - CELLULITIS, UNSPECIFIED Comment: 10/02/18 -LUE cellulitis to anticubital fossa s/p IV Iron infusion that went subq on 09/28 -LUE U/S: Superficial thrombosis -WBC decreased from 12.6 to 9.7 -CRP 5.2 -Redness and swelling receding within drawn margins on LUE -Has received 3 doses of IV Clindamycin, switch to PO Clindamycin 300mg QID x 6 days (for a total of 7 days worth of atbx) -Advised to start a Probiotic and/or eat yogurt -Sent #2 Diflucan 150mg pills with instructions to take 1 at onset of vaginal yeast infection symptoms and then again in 72 hours if needed -Continue with elevation, can alternate between ice and heat for comfort -NO NSAIDS d/t unknown cause of low hemoglobin -#10 [place] 5/325mg prescribed for severe pain control at home, may use Tylenol (2) Anemia Status: Acute Discharge Diagnosis: Anemia type: iron deficiency Iron deficiency anemia type: unspecified iron deficiency Qualified Code(s): D50.9 - Iron deficiency anemia, unspecified Base Code: D64.9 - ANEMIA, UNSPECIFIED Comment: 10/02/18 -Hgb dropped from 9 to 7.6 overnight -EGD and colonoscopy on 10/05/[address] Power (3) DVT prophylaxis Status: Acute Base Code: [id number] - Comment: 10/02/18 -Moderate risk -Nursing to encourage ambulation (4) Full code status Status: Acute Base Code: Z78.9 - OTHER SPECIFIED HEALTH STATUS Comment: 10/02 -Full code this admission - Hospitalization Course Disposition: Home, Self-Care Hospital Course: Anne Benson is a 58 y.o. F who presented to the [facility] ED d/t left arm pain x 3 days. Pt was recently hospitalized from 09/27/18 to 09/28/18 d/t critically low anemia. Received 2 units of PRBCs and an IV Iron Infusion. Pt stated that the iron infusion went subq. Had mild pain and swelling at the site over the left anticubital fossa however over the last 3 days, it became progressively more swollen, painful and erythematous. Denied SOB or fevers. ED Course Vitals: T 98.5, HR 104, BP 141/94, RR 18, SpO2 99% on RA Labs: Creatinine 1.1, GFR 54, WBC 12.6, Hgb 9, CRP 5.2 10/02/18 1145 Vitals: T 97.0, HR 70, BP 123/75, RR 18, SpO2 97% RA Lying in bed with left arm elevated. Awake and Alert. Spouse at bedside. Reports that the redness is subsiding and that the pain is at a 3/10. Had morphine last evening which made her nauseated leading to vomiting. Discussed plan to have L arm U/S and a total of 24 hours worth of IV antibiotics. Pt and spouse verbalized agreement with plan to go home on PO antibiotics given that the arm U/S does not show a need for surgery consult. Discussed hemoglobin drop and no intervention at this time as pt has Upper and Lower GI scopes scheduled for 10/05/[address] Power. Procedures: Imaging and X-Rays 10/02/18 08:00 VENOUS DOPPLER UPPER EXT LT [US] Stat Abnormal Labs: Abnormal Lab Results 10/01/18 10/01/18 10/01/18 Range/Units 16:08 16:08 16:08 WBC 12.6 H (4.2-12.2) K/uL RBC (3.80-5.40) M/uL Hgb 9.0 L (11.6-16.0) gm/dl Hct 31.0 L (35.0-47.0) % MCV 71.8 L (81-97) fl MCH 20.8 L (27-33) pg MCHC 29.0 L (32-36) g/dl RDW 25.9 H (11.5-14.5) % Plt Count 472 H (130-400) K/uL Lymphocytes % 11.8 L (16-45) % Monocytes % 11.9 H (0-9) % Creatinine 1.1 H (0.5-0.9) mg/dL Random Glucose 124 H (74-109) mg/dL Calcium (8.6-10.0) mg/dL AST 40 H (10.0-35.0) U/L Alkaline Phosphatase 123 H (35-104) U/L C-Reactive Protein 5.20 H (<0.5) mg/dL 10/02/18 10/02/18 Range/Units 06:30 06:30 WBC (4.2-12.2) K/uL RBC 3.66 L (3.80-5.40) M/uL Hgb 7.6 L (11.6-16.0) gm/dl Hct 27.2 L (35.0-47.0) % MCV 74.3 L (81-97) fl MCH 20.7 L (27-33) pg MCHC 27.9 L (32-36) g/dl RDW 26.5 H (11.5-14.5) % Plt Count (130-400) K/uL Lymphocytes % 15.9 L (16-45) % Monocytes % 14.6 H (0-9) % Creatinine (0.5-0.9) mg/dL Random Glucose (74-109) mg/dL Calcium 8.5 L (8.6-10.0) mg/dL AST (10.0-35.0) U/L Alkaline Phosphatase (35-104) U/L C-Reactive Protein (<0.5) mg/dL Condition at Discharge: (2) Stable Discharge Medications - Discharge Medications Prescriptions: Bifidobacterium Infantis [Align] 4 mg PO DAILY #10 capsule Clindamycin HCl [Cleocin HCl] 300 mg PO QID #28 capsule Fluconazole [Diflucan] 150 mg PO ONCE #2 tab Hydrocodone/APAP 5/325Mg [[place] 5Mg/325Mg] 1 each PO Q4H PRN #10 tab PRN Reason: Pain - Mod To Severe (5-10) Home Medications: Ambulatory Orders Acetaminophen [Tylenol 325Mg] 650 mg PO Q4H PRN tablet 10/02/18 [Last Taken Unknown] Bifidobacterium Infantis [Align] 4 mg PO DAILY #10 capsule 10/02/18 [Last Taken Unknown] Clindamycin HCl [Cleocin HCl] 300 mg PO QID #28 capsule 10/02/18 [Last Taken Unknown] Fluconazole [Diflucan] 150 mg PO ONCE #2 tab 10/02/18 [Last Taken Unknown] Hydrocodone/APAP 5/325Mg [[place] 5Mg/325Mg] 1 each PO Q4H PRN #10 tab 10/02/18 [ Last Taken Unknown] Discharge Plan - Discharge Instructions Activity at Discharge: Resume Usual Activities As Tolerated Diet at Discharge: Advance to Usual Diet Instructions: Cellulitis (DC), Anemia (DC) Additional Instructions: Follow up with Primary Care Provider as scheduled Continue with endoscopy/colonoscopy that are scheduled for Start Clindamycin 300mg tablets tomorrow. Take 1 tablet four times a day for 6 days (this plus the IV doses in the hospital = 7 days worth of antibiotics) Take a probiotic and eat yogurt to replace good bacteria in GI tract Take 1 Diflucan pill should you develop a vaginal yeast infection, may repeat in 72 hours if needed #10 [place] 5/325mg tablets have been sent to your pharmacy to control pain, avoid using NSAIDS like Motrin (Ibuprofen) right now due the low hemoglobin and risk of bleeding with NSAIDS May take Tylenol (Acetaminophen) in place of [place], but note that there is acetaminophen in [place] and you should not take more than 4,000mg of acetaminophen in a 24 hour period. Quality Measures - Quality Measures Quality Measures: Documentation of Current Medications in Medical Record, Screening for High Blood Pressure and F/U Documented - Current Medications Quality Measure: Measure #130: Documentation of Current Medications Documentation of Current Medications: <Current Medications Documented/Reviewed> [G8427] - Blood Pressure Screening Quality Measure: Screening for High Blood Pressure and Follow-Up Documented Does Patient Have Any of the Following: Active Dx of HTN Blood Pressure Classification: Hypertensive Reading Systolic Measurement: 141 Diastolic Measurement: 94 Screening for High Blood Pressure: Patient Exclusion, Hx of HTN [G9744] - Elder Abuse Suspicion Index EASI Reference Information: Ramos TREVIÑO, Carri C, Rosa D, David Bishop.Development and validation of a tool to assist physicians identification of elder abuse: The Elder Abuse Suspicion Index (EASI ). Journal of Elder Abuse and Neglect, 2008; 20 (3): 276-300.
--- NOTE | 2018-10-03 05:00 | US VENOUS DOPPLER REPORT ---
EXAM: LEFT UPPER EXTREMITY VENOUS DUPLEX ULTRASOUND HISTORY: LEFT ARM SWELLING AND REDNESS FOLLOWING INTRAVENOUS INJECTION. TECHNIQUE: Left upper extremity venous Duplex ultrasound was obtained. Comparison: None. FINDINGS: No evidence of thrombus involving the left internal jugular vein, subclavian vein, axillary vein, parabrachial veins, basilic vein, radial vein, or ulnar vein. The visualized cephalic vein appears to have echogenic filling defect throughout the visualized course with no internal color flow or waveform. IMPRESSION: 1. SUPERFICIAL THROMBOSIS OF THE LEFT CEPHALIC VEIN. 2. NO EVIDENCE OF LEFT UPPER EXTREMITY DEEP VENOUS THROMBOSIS. JOB NUMBER: [id number] [facility]
== END 2018-10-02 16:59 | disposition home or self-care (01) ==
LOC: ER 14:52 → MEDSURG 16:57
PROVIDERS: ADMIT Internal Medicine; ATTEND Internal Medicine
DX: L03.114 Cellulitis of left upper limb (principal); D50.9 Iron deficiency anemia, unspecified; R01.1 Cardiac murmur, unspecified; Z87.442 Personal history of urinary calculi
CPT/HCPCS: 99285 ×2; 96365; 85025 ×2; 86140; 80048; 80053; 93971; G0378 ×2; J2405; J2270 ×2; 99220

== ENCOUNTER → 2018-10-05 | Day surgery (SDC) | payer OTHER ==
[~2018-10-05] MED LIST: LIDOCAINE 2% MDV (20MG/ML) 20ML VIAL IV ONE; PROPOFOL 10 MG/ML VIAL IV ONE
--- NOTE | 2018-10-06 08:10 | Operative Note ---
DATE OF SURGERY: 10/05/2018 OPERATION: 1. ESOPHAGOGASTRODUODENOSCOPY with biopsy. 2. COLONOSCOPY. PREOPERATIVE DIAGNOSIS: Iron deficiency anemia of unclear etiology. POSTOPERATIVE DIAGNOSES: 1. Erosive and ulcerative gastritis. 2. Large hiatal hernia. 3. Sigmoid diverticulosis, moderate. PREPARATION QUALITY: Excellent. ESTIMATED BLOOD LOSS: Minimum. SPECIMENS: Gastric and duodenal. COMPLICATIONS: None apparent. PROCEDURE: After informed consent was obtained from the patient, she was placed in the left lateral decubitus position in the endoscopy suite, sedated and monitored by the department of anesthesia. A well-lubricated [id number] gastroscope was placed in the posterior oropharynx under direct visualization and passed to the proximal esophagus. The endoscope was then advanced into the subdiaphragmatic stomach. There was a large hiatal hernia. There were linear erosions and ulcers throughout the gastric body and antrum. The pylorus, duodenal bulb, and sweep were unremarkable. Random duodenal biopsies were obtained to rule out celiac sprue. J-turn views of the proximal stomach revealed a hiatal hernia as well as Frantz's lines and erosions and ulcers. No active bleeding sites or stigmata of recent hemorrhage was identified. Random gastric biopsies were obtained. The endoscope was removed from the patient with no new findings noted. Digital rectal exam was then performed which was unremarkable. A well-lubricated [id number] colonoscope was inserted into the rectum and advanced to the cecum. The cecum, cecal bulb, distal portion of the terminal ileum, ascending colon, transverse colon, descending colon, sigmoid colon, and rectum were free of inflammatory changes, mass lesions, or polyps. There were moderate sigmoid diverticular changes noted, however. The rectum was unremarkable in forward and in J-turn views. The endoscope was straightened, the rectal ampulla deflated, and the endoscope was removed. RECOMMENDATIONS: I would suggest the patient begin a twice per day proton pump inhibitor for the next 6 weeks at which point I will repeat her upper endoscopy to assess healing. We will await the results of gastric and duodenal biopsies. In addition, she should follow a high-fiber diet and undergo repeat colonoscopy in 10 years. As always, thank you for allowing me to participate in the healthcare of your patients. CC: JESIKA Simeon
== END | disposition home or self-care (01) ==
LOC: HOP 12:29
PROVIDERS: ATTEND Internal Medicine Gastroenterology
DX: D50.9 Iron deficiency anemia, unspecified (principal); K57.30 Diverticulosis of large intestine without perforation or abscess without bleeding; K44.9 Diaphragmatic hernia without obstruction or gangrene; K29.00 Acute gastritis without bleeding

== ENCOUNTER 2018-11-23 08:34 | Day surgery (SDC) | payer OTHER ==
[2018-11-23] MEDS ORDERED: FENTANYL PF 100MCG/2ML VIAL IV ONE (08:35)
[2018-11-23] MEDS ORDERED: PROPOFOL 10 MG/ML VIAL IV ONE (08:35)
[2018-11-23] MEDS ORDERED: LIDOCAINE 2% MDV (20MG/ML) 20ML VIAL IV ONE (08:35)
--- NOTE | 2018-11-24 08:50 | Operative Note ---
OPERATION: ESOPHAGOGASTRODUODENOSCOPY. PREOPERATIVE DIAGNOSIS: History of gastric ulcerations and Frantz ulcers. POSTOPERATIVE DIAGNOSIS: Hiatal hernia with associated Frantz lines but no ulcers seen. PROCEDURE: After informed consent was obtained from the patient, she was placed in the left lateral decubitus position in the endoscopy suite, sedated and monitored by the department of anesthesia. A well-lubricated [id number] gastroscope was placed in the posterior oropharynx under direct visualization and passed to the proximal esophagus. The endoscope was advanced through the proximal, mid, and distal esophagus. The GE junction and esophagus were unremarkable. There was a moderate-size hiatal hernia measured out at 6 cm extending from 36 to 42 cm. The GE junction was otherwise unremarkable. The gastric antrum demonstrated no further erosive or ulcerative changes. The pylorus, duodenal bulb, and sweep were unremarkable. J-turn views of the proximal stomach revealed the aforementioned hernia. There were several Frantz lines but no ulcers or erosions were readily seen. The endoscope was straightened, the stomach deflated, the endoscope was removed. RECOMMENDATIONS: I would suggest the patient reduce her PPI to once daily. Would monitor a hemoglobin serially. She should be taking iron with vitamin C. At this point, I presume her anemia and iron deficiency were related to loss from the hernia and inflammatory changes previously seen in the stomach. Hopefully, [id number] PPI will maintain her symptoms and gastric integrity. As always, thank you for allowing me to participate in the healthcare of your patients. CC: JESIKA Simeon
== END 2018-11-23 10:40 | disposition home or self-care (01) ==
LOC: HOP 08:34
PROVIDERS: ATTEND Internal Medicine Gastroenterology
DX: Z87.19 Personal history of other diseases of the digestive system (principal); K44.9 Diaphragmatic hernia without obstruction or gangrene
CPT/HCPCS: 43235; 00731; J3010